=== PATIENT | female | born 1985 | race Caucasian/White ===

== ENCOUNTER 2017-08-06 21:36 | Emergency (ER) | payer OTHER ==
[~2017-08-06] VITALS: Ht 162.6 cm; Wt 52.0 kg
[2017-08-06 22:12] LABS: HCG UR SG 1.004 (1.003-1.030)
[2017-08-06 22:20] LABS: ALBUMIN 3.9 g/dL (3.4-5.0); ANION GAP 14 mmol/L (5-15); CALCIUM 8.6 mg/dL (8.5-10.1); CHLORIDE 109 mmol/L (98-107); CREATININE 0.95 mg/dL (0.55-1.02)
[2017-08-06 22:21] LABS: ACETAMINOPHEN < 2 mcg/mL (10-30); SALICYLATE LEVEL < 1.7 mg/dL (2.8-20.0)
[2017-08-06 22:22] LABS: AMPHETAMINE SCREEN, URINE Negative (Negative); BARBITURATE SCREEN, URINE Negative (Negative); BENZODIAZEPINE SCREEN, URINE Positive (Negative); CANNABINOID SCREEN, URINE Negative (Negative); COCAINE SCREEN, URINE Negative (Negative); METHADONE SCREEN, URINE Negative (Negative); OPIATE SCREEN, URINE Negative (Negative)
[2017-08-06 22:37] LABS: MEAN CORPUSCULAR HEMOGLOBIN 17.4 pg (27.0-34.8); MEAN PLATELET VOLUME 6.4 fL (7.4-10.4); PLATELET COUNT 457 x10^3/uL (130-400); RED BLOOD COUNT 4.31 x10^6/uL (3.82-5.3); RED CELL DISTRIBUTION WIDTH 20.2 % (9.6-15.2)
[2017-08-06 22:56] LABS: MEAN CORPUSCULAR HGB CONC 28.6 g/dL (32.4-35.8)
[2017-08-06 23:19] LABS: MD YES
[2017-08-06 23:24] LABS: BAND#(MANUAL) 0.05 x10^3/uL; BANDS%(MANUAL) 1 % (0-7); BASOS#(MANUAL) 0.05 x10^3/uL (0-0.1); BASOS% (MANUAL) 1 % (0-1); EOS#(MANUAL) 0.29 x10^3/uL (0.0-0.4); EOS% (MANUAL) 6 % (1-7); LYMPHS% (MANUAL) 55 % (22-44); MONOS#(MANUAL) 0.29 x10^3/uL (0.3-2.7); MONOS% (MANUAL) 6 % (2-9); SEG#(MANUAL) 1.52 x10^3/uL (1.8-6.8); SEGS% (MANUAL) 31 % (42-75)
[2017-08-06 23:25] LABS: <PLATELET ESTIMATE> INCREASED; ANISOCYTOSIS 2+; HYPOCHROMIA 2+; MICROCYTOSIS 2+; OVALOCYTES 1+; POLYCHROMASIA 1+; SMALL PLATELETS 1+; TARGET CELLS 1+; TEAR DROPS 1+
[2017-08-07 04:11] VITALS: BP 122/74
== END 2017-08-07 07:35 | disposition home or self-care (01) ==
LOC: ED 23:59
DX: R45.851 Suicidal ideations (principal); D64.9 Anemia, unspecified; F10.129 Alcohol abuse with intoxication, unspecified; E11.9 Type 2 diabetes mellitus without complications; Z90.49 Acquired absence of other specified parts of digestive tract; Z79.899 Other long term (current) drug therapy
CPT/HCPCS: 36415; 80048; 80307; 80329; 81025; 82040; 84703; 85025; 99284; G0480